=== PATIENT | male | born 1990 | race Caucasian/White ===

== ENCOUNTER 2024-10-22 20:31 | Emergency (ER) | payer SELFPAY ==
[~2024-10-22] VITALS: Ht 177.8 cm; Wt 68.0 kg
[2024-10-22 20:59] VITALS: BP 125/96; O2SAT 95
== END 2024-10-22 21:21 | disposition left against medical advice (07) ==
LOC: ER 20:52
DX: T50.991A Poisoning by other drugs, medicaments and biological substances, accidental (unintentional), initial encounter (principal); F32.A Depression, unspecified; F19.10 Other psychoactive substance abuse, uncomplicated; F17.210 Nicotine dependence, cigarettes, uncomplicated; Z59.00 Homelessness unspecified; Y92.89 Other specified places as the place of occurrence of the external cause
CPT/HCPCS: A4606; A4663